=== PATIENT | male | born 1960 | race Caucasian/White ===

== ENCOUNTER 2018-04-09 06:11 | Inpatient (IN) | payer BC, OTHER ==
[~2018-04-09] VITALS: Ht 177.8 cm; Wt 81.6 kg
[2018-04-09 08:45] VITALS: BP 154/88
[2018-04-09 13:41] LABS: HEMATOCRIT 44.8 % (42.0-52.0); HEMOGLOBIN 15.5 gm/dL (14.0-18.0); MCH 33.9 pg (26.0-34.0); MCHC 34.7 g/dL (28.0-37.0); MCV 97.7 fL (80.0-100.0); RBC 4.58 mil/uL (4.50-6.00); RDW 13.1 % (10.5-14.5); WBC 3.4 thou/uL (4.0-11.0)
[2018-04-09 13:53] LABS: CREATININE 1.4 mg/dL (0.7-1.3); POTASSIUM 4.6 mmol/L (3.5-5.1)
[2018-04-09] MEDS ORDERED: LIPITOR 20 MG T20 M1 PO (13:59)
[2018-04-09] MEDS ORDERED: ZESTORETIC 20-1 EACH PO (14:00)
--- NOTE | 2018-04-09 14:15 | NUR ---
PT ADMITTED RELATED TO SBO. CM REVIEWED CHART AND SPOKE WITH CARE TEAM. CM MET WITH PT AT BEDSIDE THIS DAY. PT IS A&O X4. CM ROLE INTRODUCED. PT INDICATED HE LIVES IN A HOUSE WITH HIS SON, STR IN LAW, AND GRANDCHILD. PT LIVES IN THE BASEMENT WITH 12 STEPS TO ENTER. PT INDICATED HE CAN ENTER THROUGH THE GARAGE WITH NO STEPS. 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 NO DME OR HH HX. PT PLANS TO RETURN HOME ONCE MEDICALLY STABLE. CM TO FOLLOW INDICATED WITH DC PLANNING.
[2018-04-09 15:20] VITALS: BP 144/86
--- NOTE | 2018-04-09 19:47 | NUR ---
PT ARRIVED AT 0845 FROM [facility] FOR SBO. A/OX4, PAIN MANAGED WITH MEDICATION, NG TUBE TO RIGHT NARE, CONSULT WITH DR ANDUJAR WITH SURGERY THIS AFTERNOON. HOME MEDS RECONCILED. NPO, UP STAND BY TO BATHROOM. ABLE TO MAKE NEEDS KNOWN. CALL LIGHT IN REACH. BED LOCKED. ADMISSION ASSESMENT AND HISTORY COMPLETED. NO KNOWN ALERGIES.
[2018-04-09 20:27] VITALS: BP 155/92
--- NOTE | 2018-04-09 23:52 | NUR ---
Received pt from PACU. Pt vitals are stable. NG tube on left nare on intermittent suction. Gave pt fentanyl for pain. He also has a zheng cath. Denies nausea and vomiting. Incision site no dressing and is above the umbilicus. Pt is NPO. No identified needs at the moment. Will continue to monitor.
[2018-04-10 04:36] VITALS: BP 160/87
[2018-04-10 05:30] LABS: HEMATOCRIT 42.5 % (42.0-52.0); HEMOGLOBIN 13.6 gm/dL (14.0-18.0); MCH 32.7 pg (26.0-34.0); MCHC 31.9 g/dL (28.0-37.0); MCV 102.5 fL (80.0-100.0); RBC 4.15 mil/uL (4.50-6.00); RDW 13.7 % (10.5-14.5); WBC 4.7 thou/uL (4.0-11.0)
[2018-04-10 05:56] LABS: CALCIUM 8.4 mg/dL (8.5-10.1); CREATININE 1.2 mg/dL (0.7-1.3); POTASSIUM 4.7 mmol/L (3.5-5.1)
--- NOTE | 2018-04-10 14:58 | NUR ---
CARE TEAM INDICATED THAT PT IS TO [facility]. CARE TEAM TO FOLLOW INDICATED WITH DC PLANNING.
[2018-04-10 15:59] VITALS: BP 167/97
[2018-04-10 19:11] VITALS: BP 170/100
--- NOTE | 2018-04-10 19:33 | NUR ---
POSTOP DAY #1 SEGMENTAL SMALL BOWELL RESECTION. ABD INCISIONS INTACT WITH SURGICAL GLUE. FENTANYL HELPFUL FOR PAIN. LARGE OUTPUT FROM NG TUBE. VOIDING WITHOUT DIFFICULTY AND IN ADEQUATE AMOUNTS. AMBULATED IN ROOM AND SAT UP IN CHAIR FOR A FEW HOURS. BELCHING/NO FLATUS. IS UP TO 1000. VERY PLEASANT AND COOPERATIVE.
[2018-04-10 20:37] VITALS: BP 155/93
[2018-04-11 03:18] VITALS: BP 168/97
--- NOTE | 2018-04-11 04:37 | NUR ---
Pt. rested quietly at intervals during the night when checked on during frequent rounds. He has been given pain meds (see emar) for c/o abdominal pain with some relief noted. No c/o nausea. Ng tube is patent to lis.
[2018-04-11 05:33] LABS: HEMATOCRIT 37.3 % (42.0-52.0); HEMOGLOBIN 12.6 gm/dL (14.0-18.0); MCH 33.1 pg (26.0-34.0); MCHC 33.8 g/dL (28.0-37.0); RBC 3.81 mil/uL (4.50-6.00); RDW 13.3 % (10.5-14.5); WBC 4.4 thou/uL (4.0-11.0)
[2018-04-11 05:49] LABS: CALCIUM 8.8 mg/dL (8.5-10.1); CREATININE 0.9 mg/dL (0.7-1.3); POTASSIUM 3.7 mmol/L (3.5-5.1)
[2018-04-11 07:40] VITALS: BP 171/101
--- NOTE | 2018-04-11 14:13 | NUR ---
PT IS TO BE TRANSFERED TO [facility] THIS AFTERNOON ROOM 225. PT WILL LIKELY DISCHARGE HOME WITH NO NEEDS ONCE MEDICALLY STABLE.
--- NOTE | 2018-04-11 17:49 | NUR ---
PATIENT TRANSFERRED TO UNIT AT APPROX 1520. REPORT GIVEN BY NURSE LON. PATIENT ORIENTED TO UNIT. FLUID RESUMED. PATIENT RESTING IN BED WITH CALL LIGHT WITHIN REACH. PATIENT CALLS OUT APPROPRIATELY.
[2018-04-11 19:42] VITALS: BP 170/95
[2018-04-11 20:41] VITALS: BP 169/104
--- NOTE | 2018-04-12 05:40 | NUR ---
ASSUMED CARE OF PATIENT AT 1899. VSS. ASSESSMENT COMPLETED AT 2054 AND IS DOCUMENTED. PT C/O ABD PAIN. PRN FENTANYL GIVEN WITH DESIRED EFFECT ACHIEVED. LBM: 04/11. ALL 3 INCISIONS HAVE INTACT DERMABOND WITH NO S/S INFECTION OR DEHISCENCE. RIGHT AC AND LEFT HAND PIV INFILTRATED AND WERE D/C. PIV PLACED IN RIGHT FA WITHOUT COMPLICATION. PT ASSISTED TO SITTING POSITION, BUT THEN WAS ABLE TO AMBULATE TO BATHROOM WITHOUT ASSISTANCE. PT CONTINUES ON CLEAR LIQUID DIET AND IS TOLERATING WELL. NO N/V NOTED OR REPORTED. PT ABLE TO CALL OUT APPROPRIATELY. PT CURRENTLY SLEEPING SOUNDLY IN BED IN NO ACUTE DISTRESS. CALL LIGHT WITHIN REACH. BED LOCKED AND IN LOWEST POSITION. WCTM.
--- NOTE | 2018-04-12 06:45 | NUR ---
THIS RN AGREES WITH BOTTOM MAN'S ASSESSMENT AND NOTES.
[2018-04-12 07:54] LABS: ABSOLUTE NEUTROPHILS 4.1 thou/uL (1.4-8.2); BASOPHILS 0.1 % (0.0-2.0); EOSINOPHILS 0.7 % (0.0-3.0); HEMATOCRIT 32.7 % (42.0-52.0); HEMOGLOBIN 11.6 gm/dL (14.0-18.0); LYMPHOCYTES 11.1 % (24.0-44.0); MCH 34.2 pg (26.0-34.0); MCHC 35.3 g/dL (28.0-37.0); MCV 96.8 fL (80.0-100.0); MONOCYTES 10.2 % (1.0-8.0); PLATELET COUNT 209 thou/uL (150-400); POLYS 77.9 % (36.0-66.0); RBC 3.38 mil/uL (4.50-6.00); WBC 5.3 thou/uL (4.0-11.0)
[2018-04-12 08:05] LABS: CALCIUM 8.9 mg/dL (8.5-10.1); CREATININE 0.9 mg/dL (0.7-1.3); POTASSIUM 3.3 mmol/L (3.5-5.1)
[2018-04-12 10:11] VITALS: BP 158/99
--- NOTE | 2018-04-12 15:19 | NUR ---
AAOX4. CALM, COOPERATIVE. DIET ADVANCED TO FULL LIQUIDS FOR LUNCH AND WILL ADVANCE FURTHER FOR DINNER. IF HE TOLERATES REGULAR DIET MAY BE DISCHARGED TOMORROW 04/13. REPORTS PASSING FLATUS AND SOME LIQUID STOOL. FREQUENT CHECKS; WILL CONTINUE TO MONITOR.
[2018-04-12 19:23] VITALS: BP 152/100
--- NOTE | 2018-04-13 05:01 | NUR ---
ASSUMED CARE OF PATIENT AT 1900. VSS. ASSESSMENT COMPLETED AT 1930 AND IS DOCUMENTED. DRSG ON LUQ INCISION CHANGED D/T SOILING. OPTIFOAM AND TEGADERM APPLIED. DRSG SOILED WITH APPROXIMATELY 100 ML OF JULITA COLORED DRAINAGE WITHIN [address] VILLALTA NOTIFIED AT 2235. ORDERS RECEIVED TO APPLY DRY, NON-OCCLUSIVE DRSG AND CHANGE NEEDED. DRSG CHANGED X2 WITH ABD SATURATED WITH SEROUS-SANGUINEOUS DRAINAGE EACH TIME. AREA AROUND INCISION PINK AND WARM TO TOUCH. ABD TENDER, WITH PAIN INCREASING WITH MOVEMENT. PT STATES THAT HE FEELS LIKE HE NEEDS TO HAVE A BM, BUT IS UNABLE TO, AND STATES THAT HE SAT ON THE COMMODE FOR "AWHILE" STRAINING. PT STATES THAT HE IS PASSING FLATULANCE AND HAS BEEN BELCHING VERY FREQUENTLY. OTHER LAP INCISION SITES ARE INTACT WITH DERMABOND CLOSURE. PT ADVANCED TO A REGULAR DIET YESTERDAY, BUT ATE VERY LITTLE DINNER. RIGHT FA PIV PATENT WITH LR RUNNING AT 100 ML/HR. PT UP INDEPENDENTLY SEVERAL TIMES TO BATHROOM. PT A&O X4 AND ABLE TO CALL OUT APPROPRIATELY. PT CURRENTLY RESTING IN BED IN NO ACUTE DISTRESS. CALL LIGHT WITHIN REACH. BED LOCKED AND IN LOWEST POSITION. WCTM.
--- NOTE | 2018-04-13 05:51 | NUR ---
THIS NURSE AGREES WITH ASSESSMENT AND NOTES ON THIS PATIENT. WATER QUALITY SPECIALIST ALSO NOTED AND ASSESSED PATIENTS DRAINAGE DURING THE NIGHT.
[2018-04-13 08:10] VITALS: BP 165/85
--- NOTE | 2018-04-13 11:25 | NUR ---
ASSUMED CARE OF PATIENT THIS MORNING. PATIENT IS ALERT AND ORIENTED X4. HE IS UP WITH STANDBY ASSISTANCE WHEN AMBULATING. PATIENT WAS ASSESSED THIS MORNING. PATIENT HAS NOT HAD A BOWEL MOVEMENT SINCE BEFORE HIS SURGERY ON 04/09/18. HE CURRENTLY REPORTS NAUSEA, NO VOMITING AND HE IS NOT PASSING ANY GAS. HE RECEIVED ZOFRAN FOR HIS NAUSEA. PATIENT REFUSES SUPPOSITORY AT THIS TIME. PATIENT HAD MINOR DRAINAGE FROM HIS UPPER INCISION SITE. CLEANED AROUND SITE AND CHANGED DRESSING. HE HAS LACTATED RINGERS RUNNING AT 100ML/HR. HE IS CURRENTLY LYING IN BED WITH CALL LIGHT WITHIN REACH. [facility]
--- NOTE | 2018-04-13 16:34 | NUR ---
PATIENT WANTS TO ASK PHYSICIAN ABOUT WORK RELEASE INFORMATION. FOLLOW UP WITH SURGEON AND MEDICATIONS FOR DISCHARGE.
--- NOTE | 2018-04-14 04:32 | NUR ---
ASSUMED CARE OF PATIENT AT 1899. VSS. ASSESSMENT COMPLETED AT 2114 AND IS DOCUMENTED. PT SHOWERED AT 2114 INDEPENDENTLY WITH C/O INCREASING PAIN AFTERWARD. LUQ DRSG CHANGED. SMALL AMOUNT OF SEROUS-SANGUINEOUS DRAINAGE NOTED ON PREVIOUS DRSG. PRN FENTANYL GIVEN X2 WITH DESIRED EFFECT ACHIEVED. RIGHT FA PIV PATENT WITH LR RUNNING AT 100 ML/HR WITHOUT COMPLICATION. PT SLEEPING SOUNDLY IN BED. CALL LIGHT WITHIN REACH. BED LOCKED AND IN LOWEST POSITION. WCTM.
--- NOTE | 2018-04-14 05:27 | NUR ---
THIS NURSE AGREES WITH ASSESSMENT AND NOTES OF BLENDING SUPERVISOR ON THIS PATIENT.
--- NOTE | 2018-04-14 09:33 | NUR ---
A&0X4, USES CALL LIGHT FOR NEEDS, REC REPORT OF L SIDE INCISION LEAKING, BED WAS SOAKED UPON ENTRY INTO ROOM, PHYSICIAN HERE AND AWARE, REBANDAGED, NOC/O PAIN OR NAUSEA AT THIS TIME. ALSO MENTIONED LR STILL RUNNING. IV SITE PATENT, NO EDEMA OR LEAKING, MENTIONS HX OF DVT AND IS ANXIOUS TO BE D/C'D. ENCOURAGED HIM TO USE CALL LIGHT FOR ANY NEEDS
--- NOTE | 2018-04-14 11:06 | PATH ---
[facility] [place] [address] PATHOLOGY RPT PROCEDURE Name: TODD LANDRUM Room #: 225-P ADM IN M.R.#: [id number] Admission: 04/09/18 Date of : 62 Discharge: Report #: [id number] Path Case #: [id number] [facility] Accession Number: [id number] . 01 Material submitted: . SMALL BOWEL . 01 Clinical history: . Small bowel obstruction . 02 Diagnosis: Small bowel, laparoscopic small bowel resection: - Diverticulum identified grossly showing congestion as well as reactive small bowel mucosa microscopically. - Negative for dysplasia, heterotopic mucosa, or malignancy. - Margins unremarkable and viable. (IUV:tractor engine mechanic; 04/11/2018) MBR/04/11/2018 . 02 Electronically signed: . Екатерина Ng MD, Pathologist NPI- [id number] . 01 Gross description: . The specimen is received in formalin, labeled "Todd Landrum small bowel". Received is an unoriented segment of small bowel measuring 13.3 cm in length and ranges in diameter from 1.9 to 3.0 cm. Both margins are stapled closed. The serosal surface is chon pink-canela in appearance with an outpouching present, which is located 3.8 cm from the closest margin, and measures 3.1 x 3.1 x 2.7 cm. The attached mesenteric fat measures 2.0 cm in thickness. Opening the specimen reveals light singh to pink-singh mucosa with normal architectural folds. The outpouching resembles a Meckel's diverticulum. No distinct nodules or lesions are noted grossly. Sectioning through the attached mesenteric fat reveals no readily identifiable lymph nodes. The specimen is submitted representatively as follows: . A1 both margins A2-A3 public relations representative sections of outpouching A4 additional cross sections of mucosa. (CAA; 04/10/2018) QAC/QAC . 02 Pathologist provided ICD-10: K57.90 . 02 CPT . [address] [address] PATHOLOGY RPT PROCEDURE Name: TODD LANDRUM Room #: 225-P [facility] IN M.R.#: [id number] Admission: 04/09/18 Date of : 62 Discharge: Report #: [id number] Path Case #: [id number] Specimen Comment: A courtesy copy of this report has been sent to Specimen Comment: [phone], , . Specimen Comment: Report sent to , and Specimen Comment: A duplicate report has been generated due to demographic updates. Performed at: [address], [place] [id number] MD Sudhakar Alberts MD Phone: [phone] Performed at: [address] [id number] MD Екатерина Ng MD Phone: [phone]
[2018-04-14] MEDS ORDERED: COLACE100 MG PO (12:52)
[2018-04-14] MEDS ORDERED: PERCOCET PO (12:52)
--- NOTE | 2018-04-14 12:56 | NUR ---
DISCHARGE NOTE: SW reviewed chart and spoke with nursing and attending physician. [facility] from and is medically stable for discharge home today. No SW discharge needs identified at this time, but is available to assist should needs arise.
[2018-04-14 14:05] VITALS: BP 165/85
--- NOTE | 2018-04-14 14:06 | PATH ---
[facility] [address] [place] [address] PATHOLOGY RPT PROCEDURE Name: HOANG LANDRUM Room #: 225-P ADM IN M.R.#: [id number] Admission: 04/09/18 Date of : 62 Discharge: Report #: [id number] Path Case #: [id number] Note [facility] Accession Number: [id number] TESTS RESULT FLAG UNITS REF RANGE LAB Clinician Provided Cytology Information No. of containers..01 Other (Miscellaneous) Source: 01 PERITONEAL FLUID DIAGNOSIS: 02 PERITONEAL FLUID NEGATIVE FOR MALIGNANT CELLS. MESOTHELIAL CELLS ARE PRESENT. CELLULAR DEGENERATION IS PRESENT. THIS INTERPRETATION INCLUDES EVALUATION OF A CELL BLOCK. Signed out by: Екатерина Ng MD, Pathologist NPI- [id number] Performed by: Ibrahima Vang, Heel Pricker ([facility]) Gross description: 01 10 ML, YELLOW, CLOUDY /LCS FLAG LEGEND: L-Low Normal,H-High Normal,LL-Alert Low,HH-Alert High <-Panic Low,>-Panic High,A-Abnormal,AA-Critical Abnormal Performed at: [address] [place] [address] Sudhakar Alberts MD, [address] [address] Екатерина Ng MD, Specimen Comment: A courtesy copy of this report has been sent to Specimen Comment: [phone]. Specimen Comment: Report sent to Specimen Comment: A duplicate report has been generated due to demographic updates. Performed at: [address], [place], [place] [id number] MD Sudhakar Alberts MD Phone: [phone]
--- NOTE | 2018-04-14 14:09 | NUR ---
PHYSICIAN CALL RE: INCISION SITE AND RADIOLOGY DIRECTOR GIVING INSTRUCTION; SUPPLIES SENT HOME, PT TO BE D/C'D VIA W/C TO [facility] AND HOME IN VEHICLE W/FAMILY
== END 2018-04-14 15:18 | disposition home or self-care (01) | DRG 329 ==
LOC: 4W 06:11 → SICU 04-11 15:32 → ENTRNSPT 04-14 15:09 → EDTRNSPTSTS 04-14 15:13 → SICU 04-14 15:18
PROVIDERS: Hospitalist; Surgery; ADMIT Hospitalist
PROC: 0DB84ZZ Excision of Small Intestine, Percutaneous Endoscopic Approach (ICD-10-PCS; principal; 2018-04-09)
PROC: 0D9670Z Drainage of Stomach with Drainage Device, Via Natural or Artificial Opening (ICD-10-PCS; principal; 2018-04-09)
DX: K56.691 Other complete intestinal obstruction (principal); E43 Unspecified severe protein-calorie malnutrition; R18.8 Other ascites; N17.9 Acute kidney failure, unspecified; Q43.0 Meckel's diverticulum (displaced) (hypertrophic); E86.0 Dehydration; Z68.25 Body mass index [BMI] 25.0-25.9, adult; Z28.21 Immunization not carried out because of patient refusal
CPT/HCPCS: 10045; 10047; 15002; 50010; 50093; 50101; 50249; 50386; 50455; 50525; 50555; 50962; 51435; 51489; 51708; 51712; 52265; 53307; 53310; 54022; 54118; 56525; 56526; 56527; 56530; 57092; 62110; 62900; 70005

== ENCOUNTER 2020-04-11 16:29 | Inpatient (IN) | payer OTHER ==
[~2020-04-11] VITALS: Ht 177.8 cm; Wt 102.1 kg
[~2020-04-11 16:29] MED LIST: COLACE100 MG PO; LIPITOR 20 MG T20 M1 PO; PERCOCET PO; ZESTORETIC 20-1 EACH PO
[2020-04-11 16:33] VITALS: BP 175/103
[2020-04-11] MEDS ORDERED: XARELTO20 MG PO (16:36)
[2020-04-11] MEDS ORDERED: METRONIDAZOLE500 M4 PO (16:37)
[2020-04-11 16:57] LABS: BASOPHILS 0.3 % (0.0-2.0); EOSINOPHILS 0.6 % (0.0-3.0); HEMOGLOBIN 17.1 gm/dL (14.0-18.0); LYMPHOCYTES 8.7 % (24.0-44.0); MCH 35.2 pg (26.0-34.0); MCHC 34.3 g/dL (28.0-37.0); MCV 102.7 fL (80.0-100.0); MONOCYTES 7.4 % (1.0-8.0); PLATELET COUNT 353 thou/uL (150-400); RBC 4.87 mil/uL (4.50-6.00); RDW 14.9 % (10.5-14.5); WBC 12.1 thou/uL (4.0-11.0)
[2020-04-11 17:06] LABS: ANION GAP 19 mmol/L (7-16); BUN 45 mg/dL (7-18); CALCIUM 11.1 mg/dL (8.5-10.1); CHLORIDE 99 mmol/L (98-107); CO2 20 mmol/L (21-32); CREATININE 1.7 mg/dL (0.7-1.3); GLUCOSE 188 mg/dL (74-106); POTASSIUM 4.1 mmol/L (3.5-5.1); SODIUM 138 mmol/L (136-145)
[2020-04-11 17:11] LABS: INR 1.1; PROTIME 10.9 Seconds (9.3-11.4)
[2020-04-11 17:16] LABS: ALBUMIN 3.6 g/dL (3.4-5.0); SGOT 90 U/L (15-37); SGPT 100 U/L (16-63); TOTAL BILIRUBIN 1.2 mg/dL (0.2-1.0); TOTAL PROTEIN 8.2 g/dL (6.4-8.2); TROPONIN-I <0.06 ng/mL (<0.06)
[2020-04-11 17:54] LABS: BE(vivo) -3.1 mmol/L (-2 to +3); HCO3 17.6 mmol/L (22.0-26.0); PO2 109.9 mmHg (80.0-100.0); pH 7.487 (7.360-7.450); sO2 98.4 % (92.0-98.0)
[2020-04-11 17:55] LABS: PCO2 23.8 mmHg (35.0-45.0)
[2020-04-11 19:38] LABS: URINE BLOOD NEGATIVE (Negative); URINE COLOR YELLOW; URINE GLUCOSE-RANDOM* NEGATIVE (Negative); URINE KETONES TRACE (Negative); URINE LEUKOCYTES-REFLEX NEGATIVE (Negative); URINE NITRITE-REFLEX NEGATIVE (Negative); URINE PROTEIN (DIPSTICK) TRACE (Negative); URINE SPECIFIC GRAVITY >= 1.030 (1.005-1.035)
[2020-04-11 19:40] LABS: URINE CLARITY HAZY
[2020-04-11 19:41] LABS: ICTOTEST (BILI CONFIRMATORY) Negative (Negative); URINE BILIRUBIN NEGATIVE (Negative)
[2020-04-11 19:49] LABS: AMP/METHAMP Negative (Negative); BARBITURATES Negative (Negative); BENZODIAZEPINES Negative (Negative); COCAINE Negative (Negative); METHADONE Negative (Negative); OPIATES Negative (Negative); PCP Negative (Negative)
--- NOTE | 2020-04-11 20:41 | NUR ---
PT WAYNE SARMIENTO [phone], FOR CONTACT AND UPDATES.
[2020-04-12 02:44] LABS: HEMATOCRIT 46.1 % (42.0-52.0); HEMOGLOBIN 15.3 gm/dL (14.0-18.0); MCH 34.1 pg (26.0-34.0); MCHC 33.2 g/dL (28.0-37.0); MCV 102.8 fL (80.0-100.0); RBC 4.48 mil/uL (4.50-6.00); RDW 14.3 % (10.5-14.5)
[2020-04-12 03:01] LABS: ANION GAP 15 mmol/L (7-16); BUN 35 mg/dL (7-18); CALCIUM 9.2 mg/dL (8.5-10.1); CHLORIDE 105 mmol/L (98-107); CHOLESTEROL 222 mg/dL (<200); CO2 22 mmol/L (21-32); CREATININE 1.4 mg/dL (0.7-1.3); GLUCOSE 137 mg/dL (74-106); HDL CHOLESTEROL 41 mg/dL (>40); LDL CHOLESTEROL 157 mg/dL (<100); PHOSPHORUS 4.1 mg/dL (2.5-4.9); POTASSIUM 3.5 mmol/L (3.5-5.1); SODIUM 142 mmol/L (136-145); TC:HDL 5.4 Ratio (Not establshd); TRIGLYCERIDE 120 mg/dL (<150); VLDL 24 mg/dL (<40)
[2020-04-12 03:02] LABS: SERUM ASSESSMENT Clear
[2020-04-12 03:28] LABS: FOLIC ACID 11.7 ng/mL (8.6-58.9)
[2020-04-12 04:00] VITALS: BP 160/88
--- NOTE | 2020-04-12 07:36 | EKG ---
[address] [address] ELECTROCARDIOGRAM REPORT Name: HOANG LANDRUM Room #: 170-3 ADM IN M.R.#: [id number] Admission: 04/11/20 Attend Phys: Miguel Angel Cowart MD Discharge: Date of : 62 Report #: [id number] [facility] ED Test Date: 2020-04-11 Test Time: 18:36:14 Pat Name: HOANG LANDRUM Department: Room: 170 Gender: M Process Assistant: : 1960 Requested By: Tip Albright Order Number: [id number] MD: Kane Josue Measurements Intervals [place] Rate: 102 P: 38 SC: 168 QRS: -12 QRSD: 95 T: 160 QT: 344 QTc: 449 Interpretive Statements Sinus tachycardia Inferior infarct, old Lateral leads are also involved Baseline wander in lead(s) II No previous ECG available for comparison Electronically Signed On 04-12-2020 7:35:58 FIELD CROP HARVEST WORKER by Kane Josue [email or web address] <ELECTRONICALLY SIGNED> By: Kane Josue MD, [facility] 04/12/20 0735 1836 35 Kane Josue MD, FACC /EPI
[2020-04-12 08:00] VITALS: BP 137/87
[2020-04-12 12:16] VITALS: BP 137/87
--- NOTE | 2020-04-12 12:17 | NUR ---
HANDOFF TOOL SENT, CALLED TO 4W TO NOTIFY OF HANDOFF TOOL AND THAT REPORT TO BE CALLED IN APPROX 10MIN
--- NOTE | 2020-04-12 12:27 | NUR ---
CALLED TO GIVE REPORT, WAS INFORMED THAT ROOM WAS NOT CLEAN AND THEY WERE UNABLE TO GET REPORT AT THIS TIME. CALLED MANAGER PROPERTY TO NOTIFY OF INFORMATION.
--- NOTE | 2020-04-12 12:50 | NUR ---
Report given to Myla FARRAR on 4W, informed that room 459 is not clean and we are not able to send pt at this time
[2020-04-12 13:54] VITALS: BP 139/89
[2020-04-12 14:15] VITALS: BP 159/80
--- NOTE | 2020-04-12 17:53 | NUR ---
Pt arrived to floor from emergency room per bed at 1415 in stable condition. Admission hx, assessment and care plan completed.Son in room during the admission and assisted pt in answering some questions most especially alcohol history.Consult called to Dr Mehta as ordered and dinner given and well tolerated.No verbal c/o at present.Will continue to monitor.
[2020-04-12 19:58] VITALS: BP 121/83
[2020-04-13 01:06] LABS: GLYCOHEMOGLOBIN (HGB A1C) 6.2 % (4.8-5.6)
--- NOTE | 2020-04-13 01:41 | NUR ---
ASSUMED PT CARE AT SHIFT CHANGE. PT IS ALERT TO SELF. PT HAS A PATENT IV IN HIS RIGHT FOREARM. PT HAS AN ABDOMINAL HERNIA. NO OTHER SKIN ISSUES. PT TAKES MEDICATION WHOLE. PT DENIES PAIN. WHEN ASKED QUESTIONS HE TELLS ME THAT HE DOESN'T REMEMBER. ENCOURAGED PT TO DRINK WATER. URINAL AT BEDSIDE. HOURLY ROUNDS DONE ON PT. WILL CONTINUE TO MONITOR.
[2020-04-13 03:27] VITALS: BP 147/85
[2020-04-13 07:25] VITALS: BP 150/90
[2020-04-13 11:16] LABS: ALBUMIN 2.5 g/dL (3.4-5.0); CALCIUM 9.4 mg/dL (8.5-10.1); CREATININE 1.1 mg/dL (0.7-1.3); MAGNESIUM 1.7 mg/dL (1.8-2.4); POTASSIUM 3.2 mmol/L (3.5-5.1); TOTAL BILIRUBIN 0.5 mg/dL (0.2-1.0); TOTAL PROTEIN 5.7 g/dL (6.4-8.2)
--- NOTE | 2020-04-13 13:15 | NUR ---
PT ADMITTED RELATED TO FAILURE TO THRIVE, ALCOHOLIC KETOACIDOSIS. CM REVIEWED CHART AND SPOKE WITH CARE TEAM. CM CALLED AND SPOKE WITH PT AT BEDSIDE THIS DAY. PT INDICATED THAT HE RESIDES IN A HOUSE WITH HIS SON AND DTR IN LAW. HE INDICATED THAT HE HAS 4 STEPS TO ENTER AND 23 STEPS TO THE BASEMENT WHERE HE STAYS. 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 PT INDICATED HIS PCP IS DR. RYLAND LOMBARDO. SON IS HIS CONTACT. PT INDICATED NO HH HX. PT IS LISTED PATIENT PAY. 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 CM NOTIFIED UR NURSE. PT INDICATED HE PLANS TO RETURN HOME ONCE MEDICALLY STABLE. PT INDICATED HE HADN'T HAD ANY SUBSTANCE ABUSE PROGRAMING IN YEARS AND ISN'T INTERESTED IN RESOURCES CURRENTLY. CM ATTEMPTED PC TO PT'S SON KRISTYN CM LEFT VM. CM TO FOLLOW INDICATED WITH DC PLANNING. PT SEEND BY SURGERY IT HAD BEEN INDICATED THAT NO SURGICAL INTEREVENTION IS NEEDED FOR HERNIA.
[2020-04-13 15:38] VITALS: BP 138/91
[2020-04-13 19:47] VITALS: BP 143/88
--- NOTE | 2020-04-13 19:51 | NUR ---
Assumed pt care at 0700. Pt was in his room resting, pt, was oriented to self and place. pt took his medication whole without difficulties. Pt was calm and co-operative. pt have iv in his right forearm. Pt has an abdominal hernia. Pt denies pain and distress. Pt son called to check on him. will continue to monitor pt.
--- NOTE | 2020-04-14 02:56 | NUR ---
ASSUMED CARE OF PT AT 1900. PT IS A/O TO PERSON AND PLACE AND IS UP WITH ASSISTANCE TO THE BR. ROOM AIR. SR ON THE MONITOR. USES A URINAL AT THE BEDSIDE. DENIES ANY C/O PAIN OR DISCOMFORT. VSS. FALL PRECAUTIONS IMPLEMENTED, CALL LIGHT IS WITHIN REACH. WILL CONTINUE TO MONITOR.
[2020-04-14 09:33] LABS: ALBUMIN 2.7 g/dL (3.4-5.0); CALCIUM 9.7 mg/dL (8.5-10.1); MAGNESIUM 1.6 mg/dL (1.8-2.4); POTASSIUM 3.4 mmol/L (3.5-5.1); TOTAL BILIRUBIN 0.5 mg/dL (0.2-1.0); TOTAL PROTEIN 6.4 g/dL (6.4-8.2)
[2020-04-14 09:43] VITALS: BP 143/99
[2020-04-14] MEDS ORDERED: PEPCID20 MG PO (12:36)
[2020-04-14] MEDS ORDERED: VITAMIN B-1100 M2 PO (12:36)
[2020-04-14] MEDS ORDERED: A THRU Z ADVAN1 EAC1 PO (12:36)
[2020-04-14] MEDS ORDERED: MAGNESIUM400 MG PO (12:36)
[2020-04-14] MEDS ORDERED: K-DUR 20 MEQ T20 MEQ PO (12:36)
[2020-04-14] MEDS ORDERED: ATIVAN0.5 M1 PO (12:42)
[2020-04-14 15:50] VITALS: BP 146/90
--- NOTE | 2020-04-14 16:13 | NUR ---
INSURANCE INFOR FOR PT WAS OBTAINED THIS DAY. FACESHEET WAS UPDATED. THERAPIES ASSESSED PT THIS DAY AND INDICATED THAT PT WOULD BENEFIT FROM SHORT TERM POST ACUTE CARE STAY. CM SPOKE WITH PT'S SON WHO PT RESIDES WI AND HE ASKED THAT REFERRALS BE SENT TO [facility]. REFERRAL ALSO SENT TO [facility]. CM FOLLOWING REGARDING DC PLANNING.
--- NOTE | 2020-04-14 17:04 | NUR ---
FAXED REFERRAL TO [facility] SPOKE WITH BEENA IN ADM THEY WILL NOT HAVE A BED AVAILABLE TIL NEXT WEEK. FAXED REFERRAL TO [facility] SPOKE WITH MICHAEL IN ADM SHE DOES NOT HAVE A BED AVAILABLE AT [facility] THEY HAD A FLOOD REJI MANCILLA SPOKE WITH PT'S FAMILY AND THEY ARE ACCEPTING OF PT REFERRAL FOR [place] OF SHE RECEIVED REFERRAL AND WILL REVIEW. DP TO FOLLOW.
--- NOTE | 2020-04-14 18:02 | NUR ---
ASSUMED CARE OF PATIENT AT SHIFT CHANGE. ASSESSMENT CHARTED MEDS GIVEN PER EMAR. VSS; BASELINE BP ELEVATED. PROVIDER AWARE. PATIENT IS A&OX3-4 WITH SOME FORGETFULNESS. WORKED W PT/OT THIS SHIFT AND TOLERATED WELL. DENIED PAIN THIS SHIFT. INSURANCE ISSUES RESOVED; PLAN FOR PATIENT IS TO D/C TO SNF. PATIENT VOICES NO OTHER NEEDS. FALL PRECAUTIONS IN PLACE. WILL CONTINUE TO MONITOR AND FOLLOW PLAN OF CARE
[2020-04-14 21:17] VITALS: BP 144/83
[2020-04-15 07:57] VITALS: BP 155/106
--- NOTE | 2020-04-15 07:58 | NUR ---
Assumed pt care at 1900. A/O1-2,confused and impulsive at times. Denies pain on assessment. Pt frequently asking when he's going at night and wouldn't stay in bed/chair. Brittany TOVAR notified,order for ativan given with relief noted. Pt on telemetry SR. Continent of B&B. Fall precautions in place.
--- NOTE | 2020-04-15 08:23 | NUR ---
PATIENT IS NON-COMPLIANT WITH TELE MONITOR, TAKES SLEEVES OFF, DESPITE MULTIPLE REDIRECTIONS FROM MULTIPLE STAFF. HE THINKS THE TELE BOX IS HIS PHONE, HOLDING ONTO IT, THINKS HE IS CALLING FAMILY WITH IT. DR. CANTRELL NOTIFIED, ORDER TO DISCONTINUE TELEMONITOR NOTED.
[2020-04-15 09:41] LABS: ABSOLUTE NEUTROPHILS 4.9 thou/uL (1.4-8.2); BASOPHILS 0.8 % (0.0-2.0); EOSINOPHILS 3.6 % (0.0-3.0); HEMATOCRIT 39.5 % (42.0-52.0); HEMOGLOBIN 13.2 gm/dL (14.0-18.0); LYMPHOCYTES 14.8 % (24.0-44.0); MCH 34.3 pg (26.0-34.0); MCHC 33.4 g/dL (28.0-37.0); MCV 102.6 fL (80.0-100.0); MONOCYTES 8.8 % (1.0-8.0); PLATELET COUNT 234 thou/uL (150-400); RBC 3.85 mil/uL (4.50-6.00); RDW 14.2 % (10.5-14.5); WBC 6.9 thou/uL (4.0-11.0)
[2020-04-15 09:57] LABS: CALCIUM 9.5 mg/dL (8.5-10.1); POTASSIUM 3.8 mmol/L (3.5-5.1)
--- NOTE | 2020-04-15 13:58 | NUR ---
[facility] INDICATED THEY CAN ACCEPT PT FOR ADMISSION THIS DAY. CM NOTIFIED PT'S SON AND PT AND THEY ARE AWARE AND AGREEABLE WITH PT GOING THERE. [facility] ARRANGED FOR [phone]. CHART COPY MADE. ORDERS FAXED. NURSE GIVEN NUMBER FOR REPORT. NO OTHER CM INTERVENTION INDICATED. CASE CLOSED.
--- NOTE | 2020-04-15 15:22 | NUR ---
FAXED DC ORDERS/SUMMARY TO [facility] RECEIVED CONFIRMATION
== END 2020-04-15 15:01 | DRG 432 ==
LOC: ER 16:29 → EROBS 19:49 → 4W 19:49 → ER 19:54 → EROBS 19:54 → 4W 04-12 14:11
PROVIDERS: Hospitalist; Nurse Practitioner Family; Physician Assistant; ADMIT Internal Medicine; ATTEND Internal Medicine
DX: K70.10 Alcoholic hepatitis without ascites (principal); G93.41 Metabolic encephalopathy; N17.0 Acute kidney failure with tubular necrosis; E87.2 Acidosis; I74.9 Embolism and thrombosis of unspecified artery; F10.139 Alcohol abuse with withdrawal, unspecified; F10.129 Alcohol abuse with intoxication, unspecified; E86.0 Dehydration; K46.9 Unspecified abdominal hernia without obstruction or gangrene; R62.7 Adult failure to thrive; I10 Essential (primary) hypertension; E78.5 Hyperlipidemia, unspecified; Y90.9 Presence of alcohol in blood, level not specified; K43.2 Incisional hernia without obstruction or gangrene; Z20.822 Contact with and (suspected) exposure to COVID-19; Z79.899 Other long term (current) drug therapy; Z79.01 Long term (current) use of anticoagulants; Z68.32 Body mass index [BMI] 32.0-32.9, adult; Z90.49 Acquired absence of other specified parts of digestive tract; Z87.891 Personal history of nicotine dependence
CPT/HCPCS: 10045